=== PATIENT | female | born 1995 | race Caucasian/White ===

== ENCOUNTER 2016-11-01 23:11 | Emergency (ER) | payer BC, OTHER ==
[2016-11-01 23:34] VITALS: BP 134/101
--- NOTE | 2016-11-03 15:55 | ER ---
DATE SEEN: 11/01/2016 REASON FOR VISIT: Pelvic cramps. HISTORY OF PRESENT ILLNESS: This is a 21-year-old female complaining of pelvic cramps and vaginal spotting for the last month, but she passed a tissue earlier today and is concerned about possibility of . However, she did a test at home that was negative. She denies any urinary symptoms, nausea or vomiting. She is unable to provide the last period because she has been using a patch for contraception. REVIEW OF SYSTEMS: No fever or chills. MEDICATIONS: Reviewed. ALLERGIES: Reviewed. PHYSICAL EXAMINATION: GENERAL: She is not in distress. She is well hydrated. Blood pressure is 134/101, temp is 97.5, and pulse is 85. ABDOMEN: Soft and benign. SKIN: No pallor or jaundice. MENTAL STATUS: Alert. LAB STUDIES: HCG negative in urine. White cell count 8.8 and hemoglobin 11.9. Electrolytes are normal. Urinalysis, few RBCs, large occult blood, no signs of infection. IMPRESSION: Vaginal spotting. PLAN: Reassurance. I advised that the patient has probably side effects from the conception and she should follow up with PCP to discuss this next week. Return to the ED with any pain or worsening symptoms. Time seen 12:15 a.m. on 11/02. /[id number] ANDER/ZACH FIORE
== END 2016-11-02 00:30 | disposition home or self-care (01) ==
LOC: FB.ED 23:11
DX: N93.8 Other specified abnormal uterine and vaginal bleeding (principal)
CPT/HCPCS: 36415; 80048; 81001; 81025; 85025; 99283

== ENCOUNTER 2017-09-20 05:39 | Emergency (ER) | payer BC, OTHER ==
[2017-09-20 06:44] VITALS: BP 120/71
--- NOTE | 2017-09-20 07:32 | ER ---
DATE SEEN: 09/20/2017 CHIEF COMPLAINT: Laceration. HISTORY OF PRESENT ILLNESS: This is a 22-year-old female who was at work and accidentally sustained a laceration to the left thumb while cutting onions. PAST MEDICAL HISTORY: No active medical problems. ALLERGIES: No known allergies. IMMUNIZATIONS: Up to date including tetanus. PHYSICAL EXAMINATION: GENERAL: Not in distress. VITAL SIGNS: Blood pressure normal, pulse 68, temperature 98. EXTREMITIES: Left thumb revealed 1 cm sized laceration involving the left thumb pulp and partially also involving the nail. IMPRESSION: Simple laceration. PLAN: I performed digital block and then placed 2 stitches of 4-0 Prolene with no complications. She tolerated the procedure well and was discharged home. Follow up for removal of stitches in 1 week. TIME SEEN: 0600 hours. /[id number] ANDER/ZACH
== END 2017-09-20 06:47 | disposition home or self-care (01) ==
LOC: FB.ED 05:39
DX: S61.012A Laceration without foreign body of left thumb without damage to nail, initial encounter (principal); W26.9XXA Contact with unspecified sharp object(s), initial encounter; Y99.0 Civilian activity done for income or pay
CPT/HCPCS: 12001; 99000; 99282